=== PATIENT | male | born 1950 | race Caucasian/White ===

== ENCOUNTER 2017-08-07 15:41 | Outpatient (RCR) | payer OTHER ==
[2017-08-08] MEDS ORDERED: IOPAMIDOL 76% 100 ML INFUS BTL 100 ML ONE (11:43)
--- NOTE | 2017-08-08 14:47 | RADIOLOGY IMAGING REPORT ---
FACILITY: [facility] [place] PATIENT NAME: Kofi Lai : 1950 MR: [id number] V: [id number] EXAM DATE: ORDERING PHYSICIAN: MOR MORALES TECHNOLOGIST: Location: [facility] Patient: Kofi Lai : 1950 Visit/Account:[id number] Date of Sevice: 08/08/2017 KUB SINGLE VIEW ABDOMEN, KUB SINGLE VIEW ABDOMEN Provided history: Hematuria. Left sided pain. Additional pertinent history: none Two views obtained COMPARISON STUDIES: No relevant priors FINDINGS: Pre and post IV contrast injection KUBs were obtained. Before contrast, I see no stones over either kidney or in the course of the ureters. There are benign phleboliths in the pelvis. Bowel gas patte rn is within normal limits. 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 Advanced degeneration noted at L4-5. After IV contrast, the calyces appear sharp. There are no filling defects. Ureters demonstrate norm al course and caliber and the bladder. The bladder is normal. IMPRESSION: Plain films reveal no evidence of stone disease. Report Dictated By: Fran Llanes MD at 08/08/2017 2:39 PM Report E-Signed By: Fran Llanes MD at 08/08/2017 2:42 PM WSN:[id number]
--- NOTE | 2017-08-08 14:47 | RADIOLOGY IMAGING REPORT ---
FACILITY: [facility] [place] PATIENT NAME: Kofi Lai : 1950 MR: [id number] V: [id number] EXAM DATE: ORDERING PHYSICIAN: MOR MORALES TECHNOLOGIST: Location[place] [facility] [place] Patient: Kofi Lai : 1950 Visit/Account:[id number] Date of Sevice: 08/08/2017 KUB SINGLE VIEW ABDOMEN, KUB SINGLE VIEW ABDOMEN Provided history: Hematuria. Left sided pain. Additional pertinent history: none Two views obtained COMPARISON STUDIES: No relevant priors FINDINGS: Pre and post IV contrast injection KUBs were obtained. Before contrast, I see no stones over either kidney or in the course of the ureters. There are benign phleboliths in the pelvis. Bowel gas patte rn is within normal limits. 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 Advanced degeneration noted at L4-5. After IV contrast, the calyces appear sharp. There are no filling defects. Ureters demonstrate norm al course and caliber and the bladder. The bladder is normal. IMPRESSION: Plain films reveal no evidence of stone disease. Report Dictated By: Fran Llanes MD at 08/08/2017 2:39 PM Report E-Signed By: Fran Llanes MD at 08/08/2017 2:42 PM WSN:[id number]
--- NOTE | 2017-08-08 16:10 | RADIOLOGY IMAGING REPORT ---
FACILITY: [facility] PATIENT NAME: Kofi Lai : 1950 MR: [id number] V: [id number] EXAM DATE: ORDERING PHYSICIAN: MOR MORALES TECHNOLOGIST: Location: [facility] Patient: Kofi Lai : 1950 Visit/Account:[id number] Date of Sevice: 08/08/2017 ABDOMEN/PELVIS W/WO CONTRAST HISTORY: Hematuria TECHNIQUE: Axial images acquired through the abdomen/pelvis both with and without IV contrast.. Gerson nal and sagittal reformatting also performed. Dose Lowering Technique One of the following dose optimization techniques was utilized in the performance of this exam: Autom ated exposure control; adjustment of the mA and/or kV according to the patient's size; or use of an i terative reconstruction technique. Specific details can be referenced in the facility's radiology C T exam operational policy. CONTRAST: 100 mL Isovue-[id number] COMPARISON: None. FINDINGS: Visualized lung bases: Mild linear stranding the lung bases may represent scarring versus atelectasi s. Hepatobiliary: Negative. Spleen: Negative. Adrenals: Negative. Pancreas: Negative. Kidneys ureters and bladder: There is no demonstration of urolithiasis, hydronephrosis or hydroureter . No abnormality of the bladder is seen Genitalia: Prostate gland is mildly enlarged impinging upon the floor the bladder GI: There is an appendicolith present although no inflammatory change seen surrounding the appendix . There is a small hiatal hernia Vessels/spaces/nodes: Negative. Bones/soft tissues: There is a small umbilical hernia containing fat. There are moderate spondyloti c changes at L4-5 Additional findings: None pertinent. IMPRESSION: No abnormality kidneys ureters or bladder identified Prostate gland is mildly enlarged impinging upon the floor the bladder Small umbilical hernia containing fat Small hiatal hernia Report Dictated By: Rebecca Gordon MD at 08/08/2017 3:36 PM Report E-Signed By: Rebecca Gordon MD at 08/08/2017 4:07 PM WSN:[email or web address]
== END 2017-08-08 18:00 | disposition home or self-care (01) ==
LOC: LAB 15:41 → CT 15:41 → EDSTATUS 08-08 04:06 → CT 08-08 18:00
DX: R31.1 Benign essential microscopic hematuria (principal); N40.0 Benign prostatic hyperplasia without lower urinary tract symptoms; K44.9 Diaphragmatic hernia without obstruction or gangrene; K42.9 Umbilical hernia without obstruction or gangrene
CPT/HCPCS: 36415; 74018; 74178; 82565; Q9967